=== PATIENT | female | born 1970 ===

== ENCOUNTER 2023-10-13 08:42 | Outpatient (REF) | payer OTHER, SELFPAY ==
--- NOTE | ~2023-10-13 | US_ITS ---
EXAMINATION: US PELVIS CLINICAL INFORMATION: Follow-up left ovarian cyst. Images at another facility and are not available at this time for comparison. Direct correlation with prior images is recommended and if prior images are provided, an addendum will be dictated. Postmenopausal. COMPARISON: None available. TECHNIQUE: Ultrasound of the pelvis is performed using both transabdominal and transvaginal transducers along with Doppler. Transvaginal imaging is performed due to inadequate visualization transabdominally. FINDINGS: The uterus is anteverted and measures 8.9 x 5.3 x 5.[address] within the endometrial cavity. Endometrial thickness is 5 mm. A 2.3 x 2.0 x 1.6 cm uterine mass is characteristic of a fibroid. Left ovary measures 3.7 x 2.6 x 3.2 cm, volume is 16.3 mL. A 3.0 x 1.8 x 1.3 cm left ovarian cyst appears simple. A 1.4 x 1.7 x 1.3 cm left ovarian cyst with septation versus 2 adjacent cysts. Right ovary measures 2.0 x 2.3 x 1.5 cm, volume 3.5 mL, and is unremarkable. US/US pelvic and transvaginal IMPRESSION: 1. IUD in place within the endometrial cavity. Endometrial thickness is 5 mm. 2. 2.3 cm uterine mass is characteristic of a fibroid. 3. A 3.0 cm left ovarian cyst appears simple. 1.7 cm left ovarian cyst with septation versus 2 adjacent cysts. Direct correlation with prior images is recommended and if prior images are provided, an addendum will be dictated. Recommend follow-up ultrasound in 6-8 weeks.
== END 2023-10-13 08:43 | disposition home or self-care (01) ==
LOC: HO.UMASIMG 08:42
PROVIDERS: Visit Provider Family Medicine
DX: N83.292 Other ovarian cyst, left side (principal)
CPT/HCPCS: 76830; 76856

== ENCOUNTER 2023-12-08 05:59 | Outpatient (REF) | payer OTHER, SELFPAY ==
--- NOTE | ~2023-12-08 | US_ITS ---
EXAMINATION: US PELVIS CLINICAL INFORMATION: Follow-up ovarian cyst, IUD, postmenopausal. COMPARISON: 10/13/2023. TECHNIQUE: Ultrasound of the pelvis is performed using both transabdominal and transvaginal transducers along with Doppler. Transvaginal imaging is performed due to inadequate visualization transabdominally. FINDINGS: The uterus is anteverted and measures 8.9 x 5.5 x 5.[address] within the endometrial cavity. Endometrial thickness is 5 mm. No significant free fluid. Right ovary measures 1.9 x 2.2 x 2.1 cm, volume 4.5 mL and is unremarkable. A 3.0 x 2.0 x 2.1 cm fibroid previously measured 2.3 x 2.0 x 1.6 cm. Left ovary measures 2.3 x 2.1 x 1.6 cm, volume 4.1 mL. A 0.9 x 0.7 cm simple left ovarian cyst. Previous study demonstrated 3.0 cm and 1.7 cm cysts. US/US pelvic and transvaginal IMPRESSION: 1. IUD in place within the endometrial cavity. Endometrial thickness is 5 mm. 2. A 3.0 cm fibroid previously measured 2.3 cm. 3. A 0.9 cm simple left ovarian cyst. Previous study demonstrated 3.0 cm and 1.7 cm cysts.
== END 2023-12-08 06:00 | disposition home or self-care (01) ==
LOC: HO.UMASIMG 05:59
PROVIDERS: Visit Provider Family Medicine
DX: N83.292 Other ovarian cyst, left side (principal)
CPT/HCPCS: 76830; 76856